=== PATIENT | female | born 1940 | race Caucasian/White ===

== ENCOUNTER 2017-11-16 08:50 | Inpatient (IN) | payer OTHER ==
[~2017-11-16] VITALS: Ht 160 cm; Wt 103.4 kg
[~2017-11-16 08:50] MED LIST: ASPIR-TRIN325 M1 PO; ASPIRIN81 M2 PO; CIPRO500 MG PO; CO Q-1030 MG PO; D 3 PO; FARXIGA5 MG PO; FLEXERIL10 MG PO; GLIPIZIDE10 M1 PO; GLUCOPHAGE500 MG PO; GLUCOTROL5 MG PO; HYDROCHLOROTHIA25 MG PO; ISOSORBIDE DINI30 MG PO; LIPITOR80 MG PO; LOSARTAN POTAS100 MG PO; LOSARTAN POTASS50 MG PO; METOPROLOL TART50 MG PO; MOTRIN600 MG PO; NORVASC2.5 MG PO; OMEGA 3-6-9 11200 MG PO; OMEGA 3-6-91200 MG PO; PERCOCET 5/31 TABLET PO; PLAVIX75 MG PO; THERAGRAN1 TABLET PO; TYLENOL WITH C1 EACH PO; VALACYCLOVIR500 MG PO; VITAMIN D31000 UNI2 PO; Vitamin B Complex PO; [UNRECOGNIZED DRUG - OTHER] PO; [UNRECOGNIZED DRUG - OTHER] PO
[2017-11-16 09:53] LABS: BASOPHIL (%) 0.8 % (0-1); BASOPHIL COUNT 0.1 K/uL (0-0.1); EOSINOPHIL (%) 1.1 % (0-5); EOSINOPHIL COUNT 0.2 K/uL (0-0.3); HEMATOCRIT 41.9 % (36.0-46.0); HEMOGLOBIN 14.7 G/DL (11.9-15.5); IMMATURE GRANULOCYTE (%) 0.7 % (0.0-0.7); LYMPHOCYTE (%) 12.1 % (15-42); LYMPHOCYTE COUNT 1.6 K/uL (1.0-2.8); MCH 30.4 PG (29.0-34.0); MCHC 35.1 G/DL (30.0-36.0); MONOCYTE (%) 6.8 % (3-12); MONOCYTE COUNT 0.9 K/uL (0-0.8); NEUTROPHIL (%) 78.5 % (45-76); NEUTROPHIL COUNT 10.5 K/uL (1.8-6.4); RBC DIS.WIDTH-CV 13.8 % (11.8-14.6); RBC DIS.WIDTH-SD 43.2 % (39-53); RED BLOOD COUNT 4.84 M/uL (3.80-5.20); WHITE BLOOD COUNT 13.4 K/uL (4.1-10.2)
[2017-11-16 10:01] LABS: INTER. NORMALIZED RATIO 1.1
[2017-11-16 10:13] LABS: ALBUMIN 3.5 G/DL (3.2-4.8); CHLORIDE 112 MEQ/L (99-109); POTASSIUM 3.5 MEQ/L (3.7-5.4); SODIUM 140 MEQ/L (136-147); TOTAL BILIRUBIN 1.2 MG/DL (0.0-1.0)
[2017-11-16 10:19] LABS: ALKALINE PHOSPHATASE 81 IU/L (3-129); ALT (GPT) 14 IU/L (3-49); AST (GOT) 13 IU/L (2-34); CREATININE 0.9 MG/DL (0.6-1.3); GFR ESTIMATE (CALCULATED) > 59 mL/min/; TOTAL PROTEIN 6.1 G/DL (6.4-8.3); UREA NITROGEN (BUN) 17 mg/dL (9-23)
[2017-11-16 10:20] LABS: TROP-I INTERPRETATION NEGATIVE; TROPONIN-I 0.22 ng/mL (0.0-0.30)
[2017-11-16 10:24] LABS: GLUCOSE 244 mg/dL (70-99)
[2017-11-16 10:31] LABS: APPEARANCE CLEAR ((CLEAR)); BILIRUBIN NEGATIVE; BLOOD NEGATIVE; COLOR YELLOW ((YELLOW)); GLUCOSE (STRIP) NEGATIVE; KETONES NEGATIVE; LEUKOCYTES NEGATIVE; NITRITE NEGATIVE; PROTEIN (STRIP) 30; SPECIFIC GRAVITY 1.008 (1.000-1.030); UCUL ADDED? NO; UROBILINOGEN 0.2 MG/DL (0.2-1.0)
[2017-11-16 10:35] LABS: MCV 86.6 FL (83-99); PLAT.SUFFICIENCY ADEQUATE; PLATELET COUNT 190 K/uL (156-360)
[2017-11-16 10:38] LABS: PTT 20.2 SEC (25-37)
[2017-11-16 10:45] LABS: BASE EXCESS -2.4 mEq/L (-3 to +3); BICARBONATE 19.1 mEq/L (22-26); CARBOXY HGB 1.6 % (0-5); COMMENTS - BLOOD GASES A+C+; DEVICE RA; METHEMOGLOBIN 0.8 % (0-1.5); PCO2 25 mm Hg (35-45); PO2 75 mm Hg (80-100); SITE RR; pH 7.49 (7.35-7.45)
[2017-11-16] MEDS ORDERED: ADDERALL10 MG PO (10:45)
[2017-11-16] MEDS ORDERED: DIOVAN320 MG PO (10:48)
[2017-11-16] MEDS ORDERED: B-COMPLEX-VITA1 EACH PO (10:49)
[2017-11-16] MEDS ORDERED: TYLENOL WITH C1 EACH PO (10:49)
[2017-11-16] MEDS ORDERED: LASIX40 MG PO (10:50)
[2017-11-16] MEDS ORDERED: TOUJEO SOL300 UNIT/1 SC (10:52)
[2017-11-16] MEDS ORDERED: KEFLEX500 MG PO (10:54)
[2017-11-16 13:51] LABS: THYROTROPIN (TSH) 1.9 MIU/L (0.4-5.5)
[2017-11-16 14:58] LABS: TROP-I INTERPRETATION NEGATIVE; TROPONIN-I 0.25 ng/mL (0.0-0.30)
[2017-11-16 16:07] VITALS: BP 136/69
[2017-11-16 19:24] LABS: TROP-I INTERPRETATION NEGATIVE; TROPONIN-I 0.22 ng/mL (0.0-0.30)
[2017-11-16 20:00] VITALS: BP 146/76
[2017-11-17 00:16] VITALS: BP 122/75
[2017-11-17 05:10] VITALS: BP 123/75
[2017-11-17 05:10] LABS: HEMATOCRIT 41.7 % (36.0-46.0); HEMOGLOBIN 14.2 G/DL (11.9-15.5); MCH 30.3 PG (29.0-34.0); MCHC 34.1 G/DL (30.0-36.0); MCV 89.1 FL (83-99); PLATELET COUNT 194 K/uL (156-360); RBC DIS.WIDTH-CV 14.1 % (11.8-14.6); RBC DIS.WIDTH-SD 45.3 % (39-53); RED BLOOD COUNT 4.68 M/uL (3.80-5.20); WHITE BLOOD COUNT 11.9 K/uL (4.1-10.2)
[2017-11-17 06:09] LABS: ALBUMIN 3.2 G/DL (3.2-4.8); ALKALINE PHOSPHATASE 69 IU/L (3-129); ALT (GPT) 12 IU/L (3-49); AST (GOT) 11 IU/L (2-34); CHLORIDE 111 MEQ/L (99-109); GFR ESTIMATE (CALCULATED) 57 mL/min/; POTASSIUM 3.5 MEQ/L (3.7-5.4); SODIUM 144 MEQ/L (136-147); TOTAL PROTEIN 6.2 G/DL (6.4-8.3); UREA NITROGEN (BUN) 18 mg/dL (9-23)
[2017-11-17 06:22] LABS: GLUCOSE 71 mg/dL (70-99); TOTAL BILIRUBIN 0.7 MG/DL (0.0-1.0)
[2017-11-17 07:05] VITALS: BP 139/66
[2017-11-17 12:15] VITALS: BP 112/64
[2017-11-17 17:07] VITALS: BP 110/60
[2017-11-17 19:15] VITALS: BP 112/91
[2017-11-18] VITALS (7 sets, daily range): BP systolic 105–142; BP diastolic 51–81
[2017-11-18 05:18] LABS: HEMATOCRIT 43.6 % (36.0-46.0); HEMOGLOBIN 14.6 G/DL (11.9-15.5); MCHC 33.5 G/DL (30.0-36.0); MCV 89.5 FL (83-99); PLATELET COUNT 202 K/uL (156-360); RBC DIS.WIDTH-SD 45.1 % (39-53); RED BLOOD COUNT 4.87 M/uL (3.80-5.20); WHITE BLOOD COUNT 14.4 K/uL (4.1-10.2)
[2017-11-18 05:57] LABS: CHLORIDE 106 MEQ/L (99-109); CREATININE 1.1 MG/DL (0.6-1.3); GFR ESTIMATE (CALCULATED) 51 mL/min/; POTASSIUM 3.8 MEQ/L (3.7-5.4); SODIUM 140 MEQ/L (136-147); UREA NITROGEN (BUN) 20 mg/dL (9-23)
[2017-11-18 06:04] LABS: GLUCOSE 143 mg/dL (70-99)
[2017-11-19 02:09] VITALS: BP 114/58
[2017-11-19 05:18] LABS: HEMATOCRIT 42.4 % (36.0-46.0); HEMOGLOBIN 13.8 G/DL (11.9-15.5); MCH 29.1 PG (29.0-34.0); MCHC 32.5 G/DL (30.0-36.0); MCV 89.5 FL (83-99); PLATELET COUNT 246 K/uL (156-360); RBC DIS.WIDTH-CV 14.1 % (11.8-14.6); RBC DIS.WIDTH-SD 45.7 % (39-53); RED BLOOD COUNT 4.74 M/uL (3.80-5.20); WHITE BLOOD COUNT 12.8 K/uL (4.1-10.2)
[2017-11-19 05:26] LABS: CHLORIDE 107 MEQ/L (99-109); SODIUM 139 MEQ/L (136-147)
[2017-11-19 05:31] LABS: CREATININE 1.1 MG/DL (0.6-1.3); GFR ESTIMATE (CALCULATED) 51 mL/min/; GLUCOSE 148 mg/dL (70-99); UREA NITROGEN (BUN) 26 mg/dL (9-23)
[2017-11-19 07:40] VITALS: BP 120/59
[2017-11-19] MEDS ORDERED: ELIQUIS5 MG PO (08:23)
[2017-11-19] MEDS ORDERED: AUGMENTIN875 MG PO (08:26)
[2017-11-19] MEDS ORDERED: AMIODARONE HCL200 MG PO (10:14)
[2017-11-19] MEDS ORDERED: CORDARONE200 MG PO (11:00)
[2017-11-19] MEDS ORDERED: FUROSEMIDE40 MG PO (12:27)
[2017-11-19 13:00] VITALS: BP 114/57
== END 2017-11-19 14:37 | disposition home or self-care (01) | DRG 308 ==
LOC: EME 08:50 → 4EAST 12:32 → EDOF 12:32 → ENRESERV 12:34 → EDOF 13:22 → 4EAST 13:36
PROVIDERS: Emergency Medicine; Internal Medicine; Physician Assistant
DX: I48.0 Paroxysmal atrial fibrillation (principal); I11.0 Hypertensive heart disease with heart failure; I50.43 Acute on chronic combined systolic (congestive) and diastolic (congestive) heart failure; J18.9 Pneumonia, unspecified organism; I45.10 Unspecified right bundle-branch block; I25.10 Atherosclerotic heart disease of native coronary artery without angina pectoris; E87.3 Alkalosis; J44.0 Chronic obstructive pulmonary disease with (acute) lower respiratory infection; E11.9 Type 2 diabetes mellitus without complications; E78.5 Hyperlipidemia, unspecified; I25.2 Old myocardial infarction; K21.9 Gastro-esophageal reflux disease without esophagitis; R09.02 Hypoxemia; M32.9 Systemic lupus erythematosus, unspecified; G47.33 Obstructive sleep apnea (adult) (pediatric); Z68.39 Body mass index [BMI] 39.0-39.9, adult; Z90.710 Acquired absence of both cervix and uterus; Z95.5 Presence of coronary angioplasty implant and graft; Z79.82 Long term (current) use of aspirin; Z79.4 Long term (current) use of insulin; Z79.01 Long term (current) use of anticoagulants; Z79.899 Other long term (current) drug therapy; Z72.0 Tobacco use; Z86.73 Personal history of transient ischemic attack (TIA), and cerebral infarction without residual deficits; Z82.3 Family history of stroke
CPT/HCPCS: 36415; 36600; 71045; 80048; 80053; 81003; 82043; 82570; 82803; 82948; 83036; 83735; 83880; 84443; 84484; 85025; 85027; 85610; 85730; 87070; 87205; 87449; 93005; 93306; 94799; 99202; 99281; 99285; J0696; J1160; J1650; J1940; J2405

== ENCOUNTER 2018-03-02 09:48 | Emergency (ER) | payer OTHER ==
[~2018-03-02] VITALS: Ht 160 cm; Wt 102.5 kg
[~2018-03-02 09:48] MED LIST changes: +ADDERALL10 MG PO; +AMIODARONE HCL200 MG PO; +AUGMENTIN875 MG PO; +B-COMPLEX-VITA1 EACH PO; +CORDARONE200 MG PO; +DIOVAN320 MG PO; +ELIQUIS5 MG PO; +FUROSEMIDE40 MG PO; +KEFLEX500 MG PO; +LASIX40 MG PO; +TOUJEO SOL300 UNIT/1 SC
[2018-03-02 10:13] LABS: HEMATOCRIT 45.4 % (36.0-46.0); HEMOGLOBIN 15.5 G/DL (11.9-15.5); MCHC 34.1 G/DL (30.0-36.0); PLATELET COUNT 175 K/uL (156-360); RBC DIS.WIDTH-CV 13.4 % (11.8-14.6); RBC DIS.WIDTH-SD 43.7 % (39-53); RED BLOOD COUNT 5.16 M/uL (3.80-5.20); WHITE BLOOD COUNT 10.5 K/uL (4.1-10.2)
[2018-03-02 10:23] LABS: CHLORIDE 107 mEq/L (99-109); SODIUM 142 mEq/L (136-147)
[2018-03-02 10:24] LABS: GLUCOSE 121 mg/dL (70-99)
[2018-03-02 10:28] LABS: CREATININE 1.2 mg/dL (0.6-1.3); GFR ESTIMATE (CALCULATED) 46 mL/min/
[2018-03-02 10:29] LABS: UREA NITROGEN (BUN) 19 mg/dL (9-23)
[2018-03-02] MEDS ORDERED: ANUSOL-HC21 GM PR (11:59)
[2018-03-02 12:22] VITALS: BP 189/67
== END 2018-03-02 12:23 | disposition home or self-care (01) ==
LOC: EME 09:48
DX: K64.9 Unspecified hemorrhoids (principal); K92.2 Gastrointestinal hemorrhage, unspecified; K57.30 Diverticulosis of large intestine without perforation or abscess without bleeding; E11.9 Type 2 diabetes mellitus without complications; I10 Essential (primary) hypertension; J44.9 Chronic obstructive pulmonary disease, unspecified; E78.5 Hyperlipidemia, unspecified; K21.9 Gastro-esophageal reflux disease without esophagitis; M32.9 Systemic lupus erythematosus, unspecified; I25.2 Old myocardial infarction; F32.9 Major depressive disorder, single episode, unspecified; F41.9 Anxiety disorder, unspecified; Z79.01 Long term (current) use of anticoagulants; Z79.84 Long term (current) use of oral hypoglycemic drugs; Z79.82 Long term (current) use of aspirin; Z87.891 Personal history of nicotine dependence; Z86.79 Personal history of other diseases of the circulatory system; Z95.5 Presence of coronary angioplasty implant and graft; Z98.890 Other specified postprocedural states; Z86.73 Personal history of transient ischemic attack (TIA), and cerebral infarction without residual deficits; Z90.49 Acquired absence of other specified parts of digestive tract; Z90.710 Acquired absence of both cervix and uterus; Z88.5 Allergy status to narcotic agent; Z91.041 Radiographic dye allergy status
CPT/HCPCS: 74176; 80048; 85027; 86850; 86900; 86901; 99281; 99285; J7030